=== PATIENT | male | born 1945 | race Caucasian/White ===

== ENCOUNTER 2023-01-22 17:43 | Emergency (ER) | payer MEDICARE, SELFPAY ==
[2023-01-22] VITALS (15 sets, daily range): BP systolic 109–129; BP diastolic 56–60; PULSE 58–69; RESP 18; TEMP 37.1–37.4; O2SAT 94–98; BMI 30.1
--- NOTE | 2023-01-22 18:00 | ED_ITS ---
HPI - General Adult General Time Seen by Provider: 18:00 Date Seen: 01/22/23 Chief complaint: Skin/Abscess/Foreign Body Stated complaint: Face swollen Time Seen by Provider: 01/22/23 17:44 Source: patient and RN notes reviewed Mode of arrival: ambulatory Limitations: no limitations History of Present Illness HPI narrative: Patient is a very pleasant 77-year-old male ambulatory into the ED accompanied by his with concern of facial swelling in flushing. He is not having any pain or itching. He notes his face is felt really warm and looks swollen to him. He had a cavity filled earlier this week but has no dental pain. He has had 99 temp at home today, just does not feel right. He did take a COVID test at home which was negative. He feels mildly achy. He has had some increased nasal congestion like seasonal allergies earlier but no sinus pain. No cough or respiratory symptoms. He has had a diminished appetite for few days. No abdominal pain, no nausea or vomiting. His was wondering maybe about a sinus infection but he really has no sinus pain, no headache. They really note that his face looks a little swollen through the cheeks. Related Data Home Medications Medication Instructions Recorded Confirmed amlodipine 5 mg tablet 5 mg PO DAILY 04/23/22 04/23/22 atenolol 100 mg tablet 100 mg PO DAILY 04/23/22 04/23/22 atorvastatin 20 mg tablet 20 mg PO .Bedtime 04/23/22 04/23/22 losartan 100 mg tablet 100 mg PO DAILY 04/23/22 04/23/22 aspirin 81 mg tablet,delayed 81 mg PO QDAY 04/27/22 04/27/22 release Previous Rx's Medication Instructions Recorded cephalexin 500 mg capsule 500 mg PO TID #30 caps 01/22/23 Allergies Allergy/AdvReac Type Severity Reaction Status Date / Time ragweed pollen Allergy Mild Unknown Verified 04/27/22 13:03 chlorpheniramine Allergy Unknown Verified 04/27/22 13:03 CHLORPHENIRAMINE-PHENYLPROPAN Allergy Mild Unknown Uncoded 04/27/22 13:03 Review of Systems Status of ROS: Reports: 10 or more systems reviewed and unremarkable except as noted in History and below [facility] Surgical History (Updated 04/27/22 @ 13:13 by Akosua Simmons) History of bilateral cataract extraction ?Z98.41 - Cataract extraction status, right eye (ICD-10) ?Z98.42 - Cataract extraction status, left eye (ICD-10) History of tonsillectomy ?Z90.89 - Acquired absence of other organs (ICD-10) Hx of appendectomy (~2004) ?Z90.49 - Acquired absence of other specified parts of digestive tract (ICD- 10) 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) ?Z96.642 - Presence of left artificial hip joint (ICD-10) 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) ?Z96.641 - Presence of right artificial hip joint (ICD-10) Family History (Updated 04/27/22 @ 13:08 by Courtney Grissom ~ [facility], [facility]) Father Diabetes High blood pressure Sister Diabetes Mother CHF (congestive heart failure) High blood pressure Stroke Social History (Updated 04/27/22 @ 13:11 by Courtney Grissom ~ [facility], [facility]) Narrative: father is 102 years old, still alive Smoking Status: Former smoker Do you use any of these nicotine containing products: None Second hand tobacco smoke exposure: No How often do you have a drink containing alcohol: 4 or more times a week How many standard drinks containing alcohol do you have on a typical day: 1 or 2 How often do you have six or more drinks on one occasion: Never AUDIT-C Alcohol total score: 4 Non-prescribed substance use: denies use service: Yes Exam Const: Vital Signs, click to edit/add: Vital Signs - 24 hr 01/22/23 17:51 Temperature 99.3 F Pulse Rate [Pulse Oximeter] 67 Respiratory Rate 18 Blood Pressure [Ri ght Upper Arm] 129/60 Pulse Oximetry 96 Oxygen Delivery Me thod Room Air Documenting provider has reviewed patient's vital signs: yes Common normals: no apparent distress, average body habitus, oriented x3, no limitations, healthy appearing, alert and well nourished General appearance: cooperative, comfortable, well kempt and well developed HENMT: Common normals: hearing grossly normal bilaterally, external ears normal, external nose normal, nasal mucous membranes and turbinates normal, moist oral mucous membranes, oropharynx normal, dentition normal and gingiva normal Nose: external nose normal and nasal mucous membranes and turbinates normal External ear: external ears normal Other: Face looks flushed, do feel that there is some mild swelling to the cheeks, left upper outer eyelid in below the eye look a little bit more swollen than the right, slightly more erythema there is well. There are no open skin lesions noted on his face. Forehead is not flushed or red. I see no vesicles. He does not seem to be tender when I palpate his face. Speech is normal, no hoarseness. Eye: Common normals: PERRL, EOMs intact bilaterally, conjunctivae normal and no scleral icterus Conjunctiva: conjunctiva(e) normal Pupil: PERRL Neck & C-Spine: Common normals: full ROM, no lymphadenopathy, supple, no meningeal signs, no JVD and thyroid normal Thyroid: thyroid normal Resp: Common normals: normal respiratory effort, no retractions, no use of accessory muscles and clear to auscultation bilaterally Auscultation: clear to auscultation bilaterally Cardio: Common normals: no JVD, regular rate, regular rhythm, S1 normal heart sound, S2 normal heart sound, no gallops, no clicks and no murmurs Rate: regular rate Rhythm: regular rhythm Heart sounds: S1 normal and S2 normal GI: Common normals: Normal to inspection, nondistended, normoactive bowel sounds present, soft to palpation, non-tender, no hepatosplenomegaly and no masses Palpation: soft and no hepatosplenomegaly Extremity: Other: No lower extremity edema. Neuro: Common normals: oriented x3 Sensorium/orientation: alert Meningeal signs: no meningeal signs Psych: Appearance: well kempt Course Course Hospital Course: Will establish an IV, obtain full complement of blood work. Will initiate with 1 blood culture, obtain a 2nd if it looks like it is needed. I wonder if he has early erysipelas. We will do COVID PCR on him as well. He definitely has some facial swelling and the flushing he feels could be consistent with erysipelas. He feels overall flu-linda. Need to consider other possible etiologies of infection but we have no source at this point outside of his facial symptoms. Reevaluation(s) Reevaluation #1: Patient has no history of MRSA on questioning. Have reviewed that the white count is elevated. I did review his other labs. Despite having a technically upper limits of normal range procalcitonin, do feel that he needs antibiotics. We will initiate Ancef IV here, likely discharge to home for oral antibiotic starting tomorrow. We did discuss signs and symptoms for worsening. Note, did review UpToDate recommendations for erysipelas. Time: 19:20 Reevaluation #2: Patient is receiving his Ancef. He is stable, do note his facial redness. He is certainly not rapidly worsening. He is hemodynamically stable. His is chest x-ray, urinalysis and viral triple swab are all negative/normal. Questions were answered, they are aware that a prescription was sent to the pharmacy to be started tomorrow morning. Time: 20:14 Vital Signs Vital signs: Initial Vital Signs Temperature 99.3 F 01/22/23 17:51 Temperature Source Temporal Artery Scan 01/22/23 17:51 Pulse Rate 67 01/22/23 17:51 Pulse Rhythm Regular 01/22/23 17:51 Respiratory Rate 18 01/22/23 17:51 Blood Pressure 129/60 01/22/23 17:51 Blood Pressure Mean 83 01/22/23 17:51 Blood Pressure Position Supine 01/22/23 17:51 Pulse Oximetry 96 01/22/23 17:51 Oxygen Delivery Method Room Air 01/22/23 17:51 Vital Signs Temperature 99.3 F 01/22/23 17:51 Pulse Rate 67 01/22/23 17:51 Respiratory Rate 18 01/22/23 17:51 Blood Pressure 129/60 01/22/23 17:51 Pulse Oximetry 96 01/22/23 17:51 Oxygen Delivery Method Room Air 01/22/23 17:51 Temperature 99.3 F 01/22/23 17:51 Pulse Rate 67 01/22/23 17:51 Respiratory Rate 18 01/22/23 17:51 Blood Pressure 129/60 01/22/23 17:51 Pulse Oximetry 96 01/22/23 17:51 Oxygen Delivery Method Room Air 01/22/23 17:51 Medical Decision Making Lab Data Lab results reviewed: Yes I reviewed the patient's lab results Labs: Lab Results 01/22/23 01/22/23 Range/Units 18:28 19:15 WBC 19.32 H (4.50-11.00) K/uL RBC 3.72 L (4.30-5.90) m/uL Hgb 12.1 L (13.5-17.5) gm/dL Hct 35.1 L (37.0-53.0) % MCV 94 (80-100) fL MCH 33 (26-34) pg MCHC 35 (32-36) gm/dL RDW Coeff of Kimberly 12.7 (11.5-15.5) % Plt Count 204 (140-440) K/uL Neut % (Auto) 80.6 H (42.0-72.0) % Lymph % (Auto) 10.5 L (20-44) % [place] % (Auto) 8.3 (0.0-11.0) % Eos % (Auto) 0.0 (0.0-7.0) % Baso % (Auto) 0.3 (0.0-3.0) % Neut # (Auto) 15.60 H (1.7-7.0) K/uL Lymph # (Auto) 2.00 (0.90-2.90) K/uL [place] # (Auto) 1.60 H (0.00-0.90) K/UL Eos # (Auto) 0.00 (0.00-0.50) K/uL Baso # (Auto) 0.10 (0.00-0.30) K/uL Sodium 132 L (135-149) mmol/L Potassium 3.8 (3.6-5.1) mmol/L Chloride 101 (96-114) mmol/L Carbon Dioxide 23 (20-32) mmol/L BUN 18 (7-30) mg/dL Creatinine 1.1 (0.5-1.5) mg/dL Estimated Creat Clear 58.07 Estimated GFR 69 ml/min Glucose 136 H (60-115) mg/dL Lactate 1.1 (0.5-1.9) mmol/L Calcium 9.2 (8.4-10.6) mg/dL Total Bilirubin 2.4 H (0.1-1.5) mg/dL AST 22 (12-35) U/L ALT 17 (4-50) U/L Alkaline Phosphatase 71 (40-150) U/L C-Reactive Protein 8.7 H (0.5-1.0) mg/dL Total Protein 7.1 (6.0-8.3) g/dL Albumin 3.8 (3.3-5.0) g/dL Procalcitonin 0.23 (<0.50) ng/mL Urine Color Yellow (Yellow) Urine Appearance Clear (Clear) Urine pH 5.0 (5.0-8.5) Ur Specific [place] 1.010 (1.000-1.030) Urine Protein Negative (Negative) Urine Glucose (UA) Negative (Negative) Urine Ketones Negative (Negative) Urine Blood Negative (Negative) Urine Nitrite Negative (Negative) Urine Bilirubin Negative (Negative) Urine Urobilinogen 2.0 A (0.2-1.0) Ur Leukocyte Esterase Negative (Negative) Urine RBC 0-2 (0-2) Urine WBC 0-2 (0-5) Ur Squamous Epith Cells None (None-Few) Urine Bacteria None (None) SARS-CoV-2 (PCR) Negative SARS-CoV-2 (Negative) Influenza Type A (PCR) Negative PCR FLU A (Negative) Influenza Type B (PCR) Negative PCR FLU B (Negative) RSV (PCR) Negative PCR RSV (Negative) Imaging Data Chest x-ray: Attestation: I have reviewed the pertinent imaging results. My impression: No acute pathology on my preliminary review of this portable chest x-ray. Radiologist's impression: Patient: [facility] Facility:?[facility] Patient ID:?[id number] Site Patient ID:?[id number]. Site :?[id number] Study:?XRay Chest PORTABLE-01/22/2023 7:03:31 PM Ordering Physician:Nay Jeff Final Report: INDICATION: Fills ill. TECHNIQUE: Chest 1 view. Permanently recorded images are archived. COMPARISON: None. FINDINGS: Cardiovascular and mediastinum: Heart size and vasculature are normal in caliber and appearance. Lungs and pleural spaces: No focal consolidation. Left basilar scarring versus atelectasis. No pleural effusion or pneumothorax. Bones and soft tissues: Advanced degenerative changes of the bilateral glenohumeral joints. IMPRESSION: No evidence of an acute pulmonary process. Dictated by Bharat Hernandez MD @ 01/22/2023 7:09:33 PM (Electronic Signature) Critical Care Time Critical Care Time Critical Care Time: No Discharge Plan Discharge Clinical Impression: Erysipelas Patient Disposition: Home, Self-Care Condition: Stable Instructions: Cellulitis (ED) Additional Instructions: Start oral antibiotics in the morning and take as prescribed. Can use Tylenol per bottle directions as needed for discomfort or low-grade fevers. If you are not improving within the next 24-48 hours, feel you are worsening at any point with increasing redness, worsening fever pattern, feeling more ill, do need to be re-evaluated emergently. Activity Level: Activity as Tolerated Prescriptions: New cephalexin 500 mg capsule 500 mg PO TID Qty: 30 0RF No Action losartan 100 mg tablet 100 mg PO DAILY amlodipine 5 mg tablet 5 mg PO DAILY atenolol 100 mg tablet 100 mg PO DAILY atorvastatin 20 mg tablet 20 mg PO .Bedtime aspirin 81 mg tablet,delayed release (DR/EC) 81 mg PO QDAY Follow Up/Referrals: Bhavya Youngblood MD [Staff Physician] - Stand Alone Forms: [employer] Info Instructions
--- NOTE | 2023-01-22 18:24 | CRLHL7_ITS ---
For Patients: As a result of the Cures Act, medical imaging exams and procedure reports are released immediately into your electronic medical record. You may view this report before your referring provider. If you have questions, please contact your health care provider. INDICATION: Fills ill. TECHNIQUE: Chest 1 view. Permanently recorded images are archived. COMPARISON: None. FINDINGS: Cardiovascular and mediastinum: Heart size and vasculature are normal in caliber and appearance. Lungs and pleural spaces: No focal consolidation. Left basilar scarring versus atelectasis. No pleural effusion or pneumothorax. Bones and soft tissues: Advanced degenerative changes of the bilateral glenohumeral joints. IMPRESSION: No evidence of an acute pulmonary process. Dictated by Bharat Hernandez MD @ 01/22/2023 7:09:33 PM (Electronically Signed)
[2023-01-22 18:34] LABS: Lactate* 1.1 mmol/L (0.5-1.9)
[2023-01-22] MEDS: 0.9 % SODIUM CHLORIDE 1000 ml 1,000 ML 500 ML IV (18:36)
[2023-01-22 18:37] LABS: Basophils Percent Auto 0.3 % (0.0-3.0); Hematocrit 35.1 % (37.0-53.0); Hemoglobin* 12.1 gm/dL (13.5-17.5); Immature Granulocytes Pct Auto 0.3 %; Lymphocytes Percent Auto 10.5 % (20-44); Mean Corpuscular HGB Conc 35 gm/dL (32-36); Mean Corpuscular Hemoglobin 33 pg (26-34); Mean Corpuscular Volume 94 fL (80-100); Monocytes Percent Auto 8.3 % (0.0-11.0); Neutrophils Percent Auto 80.6 % (42.0-72.0); Platelet Count* 204 K/uL (140-440); RDW Coefficient of Variation % 12.7 % (11.5-15.5); Red Blood Count 3.72 m/uL (4.30-5.90); White Blood Count* 19.32 K/uL (4.50-11.00)
[2023-01-22 18:40] LABS: Slide Review Reflex No
[2023-01-22 18:49] LABS: Chloride* 101 mmol/L (96-114)
[2023-01-22 18:50] LABS: Albumin* 3.8 g/dL (3.3-5.0); Potassium* 3.8 mmol/L (3.6-5.1); Sodium* 132 mmol/L (135-149)
[2023-01-22 18:52] LABS: Carbon Dioxide* 23 mmol/L (20-32); Creatinine* 1.1 mg/dL (0.5-1.5); Est. Creatinine Clearance* 58.07; Estimated Glomerular Filt Rate 69 ml/min
[2023-01-22 18:53] LABS: Alanine Aminotransferase* 17 U/L (4-50); Alkaline Phosphatase* 71 U/L (40-150); Aspartate Amino Transferase* 22 U/L (12-35); Bilirubin Total* 2.4 mg/dL (0.1-1.5); Blood Urea Nitrogen* 18 mg/dL (7-30); Calcium* 9.2 mg/dL (8.4-10.6); Glucose* 136 mg/dL (60-115); Total Protein* 7.1 g/dL (6.0-8.3)
[2023-01-22 19:10] LABS: Procalcitonin* 0.23 ng/mL (<0.50)
[2023-01-22 19:16] LABS: PCR FLU A Negative PCR FLU A (Negative); PCR FLU B Negative PCR FLU B (Negative); PCR RSV Negative PCR RSV (Negative)
[2023-01-22 19:17] LABS: C Reactive Protein* 8.7 mg/dL (0.5-1.0)
[2023-01-22 19:19] LABS: SARS PCR* Negative SARS-CoV-2 (Negative)
[2023-01-22 19:45] LABS: Appearance Urine Clear (Clear); Bilirubin Urine Negative (Negative); Blood Urine Negative (Negative); Color Urine Yellow (Yellow); Glucose Urine Negative (Negative); Ketones Urine Negative (Negative); Leukocyte Esterase Urine Negative (Negative); Nitrite Urine Negative (Negative); Protein Urine Negative (Negative)
[2023-01-22] MEDS: CEFAZOLIN 2 GM INJ IVP (19:53)
[2023-01-22 20:08] LABS: RBC Urine 0-2 (0-2); WBC Urine 0-2 (0-5)
== END 2023-01-22 20:42 | disposition home or self-care (01) ==
PROVIDERS: Emergency Provider Family Medicine
DX: A26 Erysipeloid (principal)
CPT/HCPCS: 36415; 71045; 80053; 81001; 83605; 84145; 85025; 86140; 87040; 87631; 96361; 96374; 99284; J0690; J7030

== ENCOUNTER 2025-05-27 15:30 | Outpatient (RCR) | payer MEDICARE, SELFPAY | END 2025-09-02 10:47 | disposition home or self-care (01) | PROVIDERS: Visit Provider Orthopaedic Surgery | DX: M19.011 Primary osteoarthritis, right shoulder (principal); M19.012 Primary osteoarthritis, left shoulder; Z51.89 Encounter for other specified aftercare | CPT/HCPCS: 97110; 97140; 97161 ==